=== PATIENT | male | born 1955 | race Two or more races ===

== ENCOUNTER 2020-12-05 17:34 | Emergency (ER) | payer OTHER ==
[~2020-12-05] VITALS: Ht 152.4 cm; Wt 63.5 kg
[2020-12-05 17:50] VITALS: BP 129/68
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
[2020-12-05] MEDS ORDERED: ROBAXIN-500MG ORAL (19:36)
[2020-12-05] MEDS ORDERED: IBUPROFEN600 M1 ORAL (19:36)
[2020-12-05 19:45] VITALS: BP 118/72
--- NOTE | 2020-12-05 19:45 | NUR ---
ER DISCHARGE NOTE: Patient is cleared to be discharged per ERMD, pt is aox4, on room air, with stable vital signs. pt was given dc and prescription instructions, pt was able to verbalize understanding, pt id band removed. pt is able to ambulate with steady gait. pt took all belongings.
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
== END 2020-12-05 19:45 | disposition home or self-care (01) ==
LOC: EMR 18:05
DX: S22.42XG Multiple fractures of ribs, left side, subsequent encounter for fracture with delayed healing (principal); S00.93XA Contusion of unspecified part of head, initial encounter; V13.4XXD Pedal cycle driver injured in collision with car, pick-up truck or van in traffic accident, subsequent encounter
CPT/HCPCS: 70450; 71250; 72125; 74176; 99284